=== PATIENT | male | born 1990 | race Caucasian/White ===

== ENCOUNTER 2020-02-08 09:05 | Emergency (ER) | payer BC, OTHER ==
[2020-02-08 09:57] VITALS: BP 146/71
--- NOTE | 2020-02-08 10:09 | UC ---
Complaint Male HPI - HPI Summary HPI Summary: 29-year-old male presents with burning with urination and ejaculation for past 4 days. States started after he tried to hold his ejaculation while having intercourse. States he is in a monogamous relationship with his spouse. No use of spermicides, changes in soaps or body washes, or use of tubs, hot tubes, or pools. Denies fever, chills, abdominal pain, back or flank pain, nausea, vomiting, frequency, urgency, hematuria, hematospermia, penile discharge or lesions. - History of Current Complaint Chief Complaint: UCGU Stated Complaint: URINARY ISSUE Time Seen by Provider: 02/08/20 09:55 Hx Obtained From: Patient Pain Intensity: 5 - Allergies/Home Medications Allergies/Adverse Reactions: Allergies Allergy/AdvReac Type Severity Reaction Status Date / Time bee venom protein (honey bee) Allergy anaph Verified 02/08/20 09:57 Home Medications: Home Medications NK [No Home Medications Reported] 02/08/20 [History Confirmed 02/08/20] PMH/Surg Hx/FS Hx/Imm Hx Previously Healthy: Yes - Denies significant PMH - Surgical History Surgical History: Yes Surgery Procedure, Year, and Place: left wrist - Family History Family History: Denies significant FMH - Social History Occupation: Employed Full-time Lives: With Family Alcohol Use: Weekly Substance Use Type: None Smoking Status (MU): Never Smoked Tobacco Review of Systems All Other Systems Reviewed And Are Negative: Yes Constitutional: Negative: Fever, Chills Skin: Negative: Rash Respiratory: Positive: Negative Cardiovascular: Positive: Negative Gastrointestinal: Positive: Negative Genitourinary: Positive: Dysuria. Negative: Hematuria, Frequency, Urgency, Vaginal/Penile Discharge, Ulceration/Lesion Musculoskeletal: Positive: Negative Neurological/Mental Status: Positive: Negative Is Patient Immunocompromised?: No Physical Exam - Summary Physical Exam Summary: GENERAL APPEARANCE: Well developed, well nourished, alert and cooperative, and appears to be in no acute distress. CARDIAC: Normal S1 and S2. No S3, S4 or murmurs. Rhythm is regular. There is no peripheral edema, cyanosis or pallor. Extremities are warm and well perfused. Capillary refill is less than 2 seconds. Peripheral pulses intact. LUNGS: Clear to auscultation without rales, rhonchi, wheezing or diminished breath sounds. ABDOMEN: Positive bowel sounds. Soft, nondistended, nontender. No guarding or rebound. No masses or hepatosplenomegally. No CVA tenderness. UROGENITAL: Normal genitalia without lesions, testicular pain or masses, or scrotal swelling. MUSKULOSKELETAL: ROM intact to all extremities. No joint erythema or tenderness. Normal muscular development. Normal gait. SKIN: Skin normal color, texture and turgor with no lesions or eruptions. Triage Information Reviewed: Yes Vital Signs: Initial Vital Signs Temp 97.7 F 02/08/20 09:52 Pulse 87 02/08/20 09:52 Resp 16 02/08/20 09:52 BP 146/71 02/08/20 09:52 Pulse Ox 99 02/08/20 09:52 Vital Signs Reviewed: Yes Complaint Male Course/Dx - Course Course Of Treatment: 29-year-old male presents with burning with urination and ejaculation for past 4 days. States started after he tried to hold his ejaculation while having intercourse. States he is in a monogamous relationship with his spouse. No use of spermicides, changes in soaps or body washes, or use of tubs, hot tubes, or pools. Denies fever, chills, abdominal pain, back or flank pain, nausea, vomiting, frequency, urgency, hematuria, hematospermia, penile discharge or lesions. Afebrile. Mildly hypertensive otherwise vital signs stable. Patient's exam was overall unremarkable. [id number] urinalysis was normal. Reviewed results with the patient. Discussed that based on his history and the urinalysis results at his symptoms were likely from a noninfectious causes of urethritis such as chemical or mechanical irritation and have recommended watchful waiting at this time. He is to follow up with urology in 3-5 days if symptoms persist. Anticipatory guidance and warning symptoms were reviewed with the patient. Verbalizes understanding and agrees with plan of care. - Differential Dx/Diagnosis Differential Diagnosis/HQI/PQRI: Epididymitis, Prostatitis, Urinary Tract Infection, Other - STI, chemical urethritis, mechanical urethritis Provider Diagnosis: Urethritis Discharge ED - Sign-Out/Discharge Documenting (check all that apply): Patient Departure All imaging exams completed and their final reports reviewed: No Studies - Discharge Plan Condition: Stable Disposition: HOME Patient Education Materials: Dysuria (ED) Referrals: No Primary Care Phys,NOPCP [Primary Care Provider] - Yoni Diego MD [Medical Doctor] - 3 Days (Follow up in 3-5 days if symptoms persist. Call for an appointment.) Additional Instructions: The urine test performed in the clinic today showed no evidence of an infection and based on your history I have a very low suspicion for a sexually transmitted infection. Common non-infectious causes of painful urination may include chemical irritation (soaps, spermicides) and/or mechanical irritation ( masturbation). I would recommend watchful waiting at this time. Follow up with urology in 3-5 days if symptoms persist. Call for an appointment. Seek immediate medical attention if you develop a fever greater than 100.5 F, have severe abdominal or back pain, testicular pain or swelling, persistent vomiting, or any worsening of symptoms. - Billing Disposition and Condition Condition: STABLE Disposition: Home - Attestation Statements Provider Attestation: I was available for consult. This patient was seen by the APRIL. The patient was not presented to , seen by or examined by ks -Evelin Gar MD
== END 2020-02-08 10:30 | disposition home or self-care (01) ==
LOC: UCEAST 09:05
DX: N34.2 Other urethritis (principal); Z91.030 Bee allergy status
CPT/HCPCS: 81003; 99212; G0463

== ENCOUNTER 2020-02-12 16:16 | Emergency (ER) | payer BC ==
[2020-02-12 16:35] VITALS: BP 123/65
[2020-02-17 17:59] LABS: Chlamydia trachomatis NAA Negative (Negative); Neisseria gonorrhoeae (GC) NAA Negative (Negative)
== END 2020-02-12 17:05 | disposition home or self-care (01) ==
LOC: UCEAST 16:16